=== PATIENT | female | born 1965 | race Caucasian/White ===

== ENCOUNTER 2020-06-30 10:05 | Emergency (ER) | payer OTHER ==
[~2020-06-30] VITALS: Ht 160 cm; Wt 122.5 kg
[2020-06-30] MEDS ORDERED: ELIQUIS5 MG (10:29)
[2020-06-30] MEDS ORDERED: DILT120 PO (10:39)
[2020-06-30] MEDS ORDERED: LOSA25 PO (10:40)
[2020-06-30] MEDS ORDERED: SERT25 PO (10:40)
[2020-06-30 10:48] LABS: Source, Urine Clean Catch
[2020-06-30 10:59] LABS: Appearance, Urine Clear (Clear); BASOPHILS ABSOLUTE AUTO 0.03 K/mm3 (0.00-0.23); BASOPHILS PERCENT AUTO 0 % (0-2); Bilirubin, Urine Neg (Neg); Blood, Urine 2+ (Neg); Color, Urine Yellow (P-Yellow); EOSINOPHILS ABSOLUTE AUTO 0.11 K/mm3 (0.00-0.68); EOSINOPHILS PERCENT AUTO 1 % (0-6); Glucose Qualitative, Urine Neg (Neg); Hematocrit 39.3 % (33.0-51.0); Hemoglobin 11.7 g/dL (11.5-16.0); IMMATURE GRAN ABSOLUTE AUTO 0.03 K/mm3 (0.00-0.10); IMMATURE GRAN PERCENT AUTO 0 % (0-1); Ketones, Urine Neg (Neg); LYMPHOCYTES ABSOLUTE AUTO 1.68 K/mm3 (0.84-5.20); LYMPHOCYTES PERCENT AUTO 21 % (21-46); Leukocyte Esterase, Urine 3+ (Neg); MONOCYTES ABSOLUTE AUTO 0.67 K/mm3 (0.16-1.47); MONOCYTES PERCENT AUTO 8 % (4-13); Mean Corpuscular HGB 23.4 pg (26.0-34.0); Mean Corpuscular HGB Conc 29.8 g/dL (31.5-36.5); Mean Corpuscular Volume 79 fL (80-100); Mean Platelet Volume 10.5 fL (9.1-12.4); NEUTROPHILS ABSOLUTE AUTO 5.54 K/mm3 (1.96-9.15); NEUTROPHILS PERCENT AUTO 69 % (41-73); Nitrite, Urine Neg (Neg); Platelet Count 306 K/mm3 (150-400); Protein, Urine Neg (Neg); RDW Coefficient Variation 17.1 % (11.7-14.2); RDW Standard Deviation 48.3 fL (35.1-46.3); Urobilinogen, Urine NORM (Normal); White Blood Cell Count 8.06 K/mm3 (4.00-11.30)
[2020-06-30 11:06] LABS: Bacteria Mod /hpf; Mucus Light (0-Heavy); Squamous Epithelial Cells Few /hpf (Few)
[2020-06-30 11:13] LABS: Alanine Aminotransfer (ALT/SGP 22 U/L (12-78); Albumin, Blood 3.5 g/dL (3.4-5.0); Albumin/Globulin Ratio 0.8 (0.8-1.8); Alk Phos 99 U/L (50-136); Anion Gap 4 mmol/L (6-16); Aspartate Aminotrans (AST/SGOT 12 U/L (12-37); Bilirubin, Total 0.5 mg/dL (0.1-1.0); Blood Urea Nitrogen 11 mg/dL (8-24); Bun/Creatinine Ratio 18.1 (12.0-20.0); CO2, Blood 27 mmol/L (21-32); Calcium, Blood 8.5 mg/dL (8.5-10.1); Chloride, Blood 110 mmol/L (98-108); Creatinine, Blood 0.61 mg/dL (0.40-1.00); Globulin, Blood 4.6 g/dL (2.2-4.0); Glomerular Filtration Rate >60 (60-); Glucose, Blood 87 mg/dL (70-99); Potassium, Blood 4.1 mmol/L (3.5-5.5); Sodium, Blood 141 mmol/L (136-145); Total Protein, Blood 8.1 g/dL (6.4-8.2)
[2020-06-30] MEDS ORDERED: Macrobid 100 M100 MG PO (11:45)
== END 2020-06-30 11:54 | disposition home or self-care (01) ==
LOC: ER 10:05
PROVIDERS: Physician Assistant
DX: K29.00 Acute gastritis without bleeding (principal); K21.9 Gastro-esophageal reflux disease without esophagitis; N39.0 Urinary tract infection, site not specified; Z79.01 Long term (current) use of anticoagulants; Z79.899 Other long term (current) drug therapy
CPT/HCPCS: 36415; 76705; 80053; 81001; 83690; 85025; 87086; 99284-25; A9270

== ENCOUNTER → 2020-12-09 | Outpatient (CLI) | payer OTHER ==
[~2020-12-09] MED LIST: DILT120 PO; ELIQUIS5 MG; LOSA25 PO; Macrobid 100 M100 MG PO; SERT25 PO
== END | disposition home or self-care (01) ==
LOC: LAB SHORT 11:45 → LAB 11:45
DX: J02.9 Acute pharyngitis, unspecified (principal)
CPT/HCPCS: 87081

== ENCOUNTER 2021-01-11 09:08 | Emergency (ER) | payer BC, OTHER ==
[~2021-01-11] VITALS: Ht 160 cm; Wt 126.5 kg
[2021-01-11] MEDS ORDERED: LOSA25 (09:31)
[2021-01-11] MEDS ORDERED: RANI150EL PO (09:31)
[2021-01-11] MEDS ORDERED: BENZ100A PO (10:09)
[2021-01-11] MEDS ORDERED: ONDA4ODT MM (10:09)
== END 2021-01-11 20:26 | disposition home or self-care (01) ==
LOC: ER 09:08
DX: U07.1 COVID-19 (principal); I48.91 Unspecified atrial fibrillation; G47.30 Sleep apnea, unspecified; Z91.048 Other nonmedicinal substance allergy status; Z79.899 Other long term (current) drug therapy; Z79.01 Long term (current) use of anticoagulants
CPT/HCPCS: 99283

== ENCOUNTER → 2021-03-05 | Outpatient (CLI) | payer BC, OTHER ==
[~2021-03-05] MED LIST changes: +BENZ100A PO; +LOSA25; +ONDA4ODT MM; +RANI150EL PO
== END | disposition home or self-care (01) ==
LOC: LAB SHORT 17:21
DX: Z09 Encounter for follow-up examination after completed treatment for conditions other than malignant neoplasm (principal); Z86.16 Personal history of COVID-19
CPT/HCPCS: 85379

== ENCOUNTER 2021-05-10 10:47 | Emergency (ER) | payer BC, OTHER ==
[~2021-05-10] VITALS: Ht 160 cm; Wt 135.2 kg
== END 2021-05-10 11:50 | disposition home or self-care (01) ==
LOC: ER 10:47
DX: U07.1 COVID-19 (principal); I50.9 Heart failure, unspecified; I48.91 Unspecified atrial fibrillation; Z79.899 Other long term (current) drug therapy
CPT/HCPCS: 99282

== ENCOUNTER 2022-06-04 22:33 | Inpatient (IN) | payer BC, OTHER ==
[~2022-06-04] VITALS: Ht 160 cm; Wt 135.0 kg
[2022-06-04 23:25] LABS: BASOPHILS ABSOLUTE AUTO 0.06 K/mm3 (0.00-0.23); BASOPHILS PERCENT AUTO 1 % (0-2); EOSINOPHILS ABSOLUTE AUTO 0.14 K/mm3 (0.00-0.68); EOSINOPHILS PERCENT AUTO 1 % (0-6); Hematocrit 43.8 % (33.0-51.0); Hemoglobin 13.6 g/dL (11.5-16.0); IMMATURE GRAN ABSOLUTE AUTO 0.09 K/mm3 (0.00-0.10); IMMATURE GRAN PERCENT AUTO 1 % (0-1); LYMPHOCYTES ABSOLUTE AUTO 2.95 K/mm3 (0.84-5.20); LYMPHOCYTES PERCENT AUTO 28 % (21-46); MONOCYTES ABSOLUTE AUTO 0.72 K/mm3 (0.16-1.47); MONOCYTES PERCENT AUTO 7 % (4-13); Mean Corpuscular HGB 24.8 pg (26.0-34.0); Mean Corpuscular HGB Conc 31.1 g/dL (31.5-36.5); Mean Corpuscular Volume 80 fL (80-100); Mean Platelet Volume 10.4 fL (9.1-12.4); NEUTROPHILS PERCENT AUTO 62 % (41-73); Platelet Count 421 K/mm3 (150-400); RDW Coefficient Variation 16.9 % (11.7-14.2); RDW Standard Deviation 49.1 fL (35.1-46.3); Red Blood Cell Count 5.49 M/mm3 (3.80-5.20); White Blood Cell Count 10.46 K/mm3 (4.00-11.30)
[2022-06-04 23:48] LABS: Influenza A, PCR NEGATIVE (NEGATIVE); Influenza B, PCR NEGATIVE (NEGATIVE); Resp Syncytial Virus, PCR NEGATIVE (NEGATIVE); SARS-Cov-2 (COVID-19) PCR, MMC NEGATIVE (NEGATIVE)
[2022-06-05 00:07] LABS: Albumin, Blood 3.2 g/dL (3.4-5.0); Albumin/Globulin Ratio 0.7 (0.8-1.8); Bilirubin, Total 0.4 mg/dL (0.1-1.0); Bun/Creatinine Ratio 16.2 (12.0-20.0); Creatinine, Blood 1.05 mg/dL (0.40-1.00); Globulin, Blood 4.8 g/dL (2.2-4.0); Potassium, Blood 3.6 mmol/L (3.5-5.5)
--- NOTE | 2022-06-05 06:33 | NUR ---
SHIFT SUMMARY PT RECEIVING DILTIAZEM 5MG/HR. SHE IS AFIB ON MONITOR WITH RATE 90S-120S. BP STABLE WITH SBP 110S-140S. PT DENIES CP. SHE IS A&OX4 AND INDEPENDENT WITH ADLS. LUNGS ARE CLEAR, DIMINISHED IN BASES. OCCASIONAL PRODUCTIVE COUGH THAT PT HAS HAD FOR APPROX 8DAYS. BOWEL TONES ACTIVE, ABDOMEN SOFT. PT HAD 1 UNMEASURED VOID THIS SHIFT. PT REQUESTED TO SLEEP IN CHAIR, RECLINER PROVIDED. CALL LIGHT WITHIN REACH AND LIGHTS DIMMED.
[2022-06-05] MEDS ORDERED: ELIQUIS5 M2 PO (06:40)
[2022-06-05] MEDS ORDERED: DESV50 PO (06:40)
[2022-06-05 07:29] LABS: BASOPHILS ABSOLUTE AUTO 0.05 K/mm3 (0.00-0.23); BASOPHILS PERCENT AUTO 1 % (0-2); EOSINOPHILS ABSOLUTE AUTO 0.11 K/mm3 (0.00-0.68); EOSINOPHILS PERCENT AUTO 1 % (0-6); Hematocrit 41.8 % (33.0-51.0); Hemoglobin 12.7 g/dL (11.5-16.0); IMMATURE GRAN ABSOLUTE AUTO 0.09 K/mm3 (0.00-0.10); IMMATURE GRAN PERCENT AUTO 1 % (0-1); LYMPHOCYTES ABSOLUTE AUTO 2.38 K/mm3 (0.84-5.20); LYMPHOCYTES PERCENT AUTO 26 % (21-46); MONOCYTES ABSOLUTE AUTO 0.82 K/mm3 (0.16-1.47); MONOCYTES PERCENT AUTO 9 % (4-13); Mean Corpuscular HGB 24.3 pg (26.0-34.0); Mean Corpuscular HGB Conc 30.4 g/dL (31.5-36.5); Mean Corpuscular Volume 80 fL (80-100); NEUTROPHILS ABSOLUTE AUTO 5.68 K/mm3 (1.96-9.15); NEUTROPHILS PERCENT AUTO 62 % (41-73); Platelet Count 423 K/mm3 (150-400); RDW Coefficient Variation 17.2 % (11.7-14.2); RDW Standard Deviation 49.4 fL (35.1-46.3); Red Blood Cell Count 5.22 M/mm3 (3.80-5.20); White Blood Cell Count 9.13 K/mm3 (4.00-11.30)
[2022-06-05 07:42] LABS: Bun/Creatinine Ratio 21.8 (12.0-20.0); Calcium, Blood 8.9 mg/dL (8.5-10.1); Creatinine, Blood 0.82 mg/dL (0.40-1.00); Potassium, Blood 3.8 mmol/L (3.5-5.5)
--- NOTE | 2022-06-05 10:25 | NUR ---
Pt. is awake and sitting in a chair whenshe welcomes my visit. Pt. is pleasant and displays evidence of being engaged and aware of her treatment and prognosis. Pt. is a woman of donald, and welcomes spritual care. Pt. verbalizes a recent loss of her sister. Through theraputic listening and pastoral care rapport is established and Pt. displays evidence of grief. Pastoral associate counsel is given and Pt. displays evidence of encouragment. Prayed with Pt. Pt. verbalized gratitude for the spiritual care visit and welcomed this calker to visit again.
--- NOTE | 2022-06-05 16:52 | NUR ---
Echocardiogram completed.
--- NOTE | 2022-06-05 18:38 | NUR ---
SUMMARY Pt is a medical floor status w/o telemetry patient. Independent in room. Tolerating activity well. HR is currently 95-105, atrial fibrillation. BP stable. Pt on room air. SpO2 90% or greater.
--- NOTE | 2022-06-05 22:13 | NUR ---
ASSUMED CARE ASSUMED CARE AT 1900. PT A/O X 4. SITTING IN A CHAIR. IND IN ROOM. DENIES CHEST PAIN. C/O SOB W/ EXERTION AND WHEN LAYING FLAT. PRODUCTIVE COUGH. AFIB RATE 90-110. SBP 130'S. VSS. ON RA. SEE SHIFT ASSESSMENT FOR FULL ASSESSMENT. CALL LIGHT IN REACH.
--- NOTE | 2022-06-06 04:54 | NUR ---
TRANSFFERED TO 309. PT TRANSFERRED VIA W/C TO 309 W/ PCT. PT CALM, W/ NO S/S OF DISTRESS NOTED. REPORT GIVEN TO MED NURSE. CHART, MEDS, AND BELONGINGS SENT WITH PT.
--- NOTE | 2022-06-06 05:37 | NUR ---
PATIENT ICU 06 TRANSFER. AXOX 4 AND ARRIVED VIA W/C. ON ROOM AIR. DENIES CHEST PAIN, SOB, AND N/V. PIV INTACT. VSS/AFEBRILE. REQUEST RECLINER TO SLEEP IN AND ONE PROVIDED. WATCHING TV AT THIS TIME. ARVIN.
--- NOTE | 2022-06-06 06:00 | NUR ---
TELEMETRY PLACED AND TECH REPORTS A-FIB 93.
[2022-06-06 06:41] LABS: Albumin/Globulin Ratio 0.7 (0.8-1.8); Bilirubin, Total 0.7 mg/dL (0.1-1.0); Bun/Creatinine Ratio 23.3 (12.0-20.0); Calcium, Blood 8.6 mg/dL (8.5-10.1); Creatinine, Blood 0.82 mg/dL (0.40-1.00); Globulin, Blood 4.3 g/dL (2.2-4.0); Magnesium, Blood 2.5 mg/dL (1.6-2.4); Phosphorus, Blood 4.5 mg/dL (2.5-4.9); Potassium, Blood 3.9 mmol/L (3.5-5.5); Total Protein, Blood 7.3 g/dL (6.4-8.2)
[2022-06-06 07:02] LABS: BASOPHILS ABSOLUTE AUTO 0.03 K/mm3 (0.00-0.23); BASOPHILS PERCENT AUTO 0 % (0-2); EOSINOPHILS ABSOLUTE AUTO 0.16 K/mm3 (0.00-0.68); EOSINOPHILS PERCENT AUTO 2 % (0-6); Hematocrit 38.3 % (33.0-51.0); Hemoglobin 11.9 g/dL (11.5-16.0); IMMATURE GRAN ABSOLUTE AUTO 0.06 K/mm3 (0.00-0.10); IMMATURE GRAN PERCENT AUTO 1 % (0-1); LYMPHOCYTES ABSOLUTE AUTO 1.99 K/mm3 (0.84-5.20); LYMPHOCYTES PERCENT AUTO 25 % (21-46); MONOCYTES ABSOLUTE AUTO 0.68 K/mm3 (0.16-1.47); MONOCYTES PERCENT AUTO 8 % (4-13); Mean Corpuscular HGB 24.4 pg (26.0-34.0); Mean Corpuscular HGB Conc 31.1 g/dL (31.5-36.5); Mean Corpuscular Volume 79 fL (80-100); Mean Platelet Volume 10.8 fL (9.1-12.4); NEUTROPHILS ABSOLUTE AUTO 5.13 K/mm3 (1.96-9.15); NEUTROPHILS PERCENT AUTO 64 % (41-73); Platelet Count 322 K/mm3 (150-400); RDW Coefficient Variation 17.2 % (11.7-14.2); RDW Standard Deviation 48.1 fL (35.1-46.3); Red Blood Cell Count 4.88 M/mm3 (3.80-5.20); White Blood Cell Count 8.05 K/mm3 (4.00-11.30)
--- NOTE | 2022-06-06 11:47 | NUR ---
Pt. is awake sitting up in a recliner and welcomes my visit. Pt. is pleasant and verbalizes an expectation that she will be kept overnight one more night before being discharged. Re-establish rapport. Pt. displays evidence of and optimistic confidence. Prayed with Pt. Pt. verbalized gratitude for the spiritual care visit. [facility]
--- NOTE | 2022-06-06 16:21 | NUR ---
SHIFT SUMMARY PATIENT IS ALERT AND ORIENTED. PATIENT HAS HAD NO ACUTE EVENTS THIS SHIFT. VITAL SIGNS REVIEWED. PATIENT HAS BEEN IND IN ROOM WITH NO INCIDENTS. PATIENT HAS HAD NO COMPLAINTS OF PAIN, NAUSEA, SOB OR VOMITTING THIS SHIFT. BED IN LOCKED AND LOWEST POSITION. CALL LIGHT IN PLACE. WILL POSSIBLY BE A DISCHARGE TOMORROW.
--- NOTE | 2022-06-07 04:06 | NUR ---
SHIFT SUMMARY PATIENT HAD NO ACUTE CHANGES. AXOX 4 AND INDEPENDENT IN ROOM. PIV REMAINS INTACT. IV ABX INFUSED. RT IN FOR BREATHING TX. DENIES PAIN AND N/V. VSS/AFEBRILE. ON TELEMETRY AFIB 107. SIT/SLEEP IN RECLINER T/O SHIFT. COOPERATIVE WITH CARE. CALL LIGHT IN REACH. BED IN LOWEST POSITION. WILL CONTINUE TO MONITOR UNTIL DAY SHIFTNURSE ASSUMES CARE.
[2022-06-07 05:50] LABS: BASOPHILS ABSOLUTE AUTO 0.01 K/mm3 (0.00-0.23); BASOPHILS PERCENT AUTO 0 % (0-2); EOSINOPHILS PERCENT AUTO 0 % (0-6); Hematocrit 39.5 % (33.0-51.0); Hemoglobin 11.9 g/dL (11.5-16.0); IMMATURE GRAN ABSOLUTE AUTO 0.12 K/mm3 (0.00-0.10); IMMATURE GRAN PERCENT AUTO 1 % (0-1); LYMPHOCYTES ABSOLUTE AUTO 1.08 K/mm3 (0.84-5.20); LYMPHOCYTES PERCENT AUTO 10 % (21-46); MONOCYTES ABSOLUTE AUTO 0.29 K/mm3 (0.16-1.47); MONOCYTES PERCENT AUTO 3 % (4-13); Mean Corpuscular HGB 24.3 pg (26.0-34.0); Mean Corpuscular HGB Conc 30.1 g/dL (31.5-36.5); Mean Corpuscular Volume 81 fL (80-100); Mean Platelet Volume 11.2 fL (9.1-12.4); NEUTROPHILS ABSOLUTE AUTO 9.86 K/mm3 (1.96-9.15); NEUTROPHILS PERCENT AUTO 87 % (41-73); Platelet Count 341 K/mm3 (150-400); RDW Coefficient Variation 16.9 % (11.7-14.2); RDW Standard Deviation 49.2 fL (35.1-46.3); White Blood Cell Count 11.36 K/mm3 (4.00-11.30)
[2022-06-07 06:13] LABS: Albumin/Globulin Ratio 0.7 (0.8-1.8); Bilirubin, Total 0.3 mg/dL (0.1-1.0); Bun/Creatinine Ratio 31.7 (12.0-20.0); Creatinine, Blood 0.6 mg/dL (0.40-1.00); Globulin, Blood 4.3 g/dL (2.2-4.0); Potassium, Blood 4.5 mmol/L (3.5-5.5); Total Protein, Blood 7.3 g/dL (6.4-8.2)
[2022-06-07] MEDS ORDERED: AIRDUO DIGIHAL1 EAC2 (13:57)
[2022-06-07] MEDS ORDERED: GUAI600T33 PO (13:58)
[2022-06-07] MEDS ORDERED: METO25ER PO (13:59)
[2022-06-07] MEDS ORDERED: LEVOFLOXACIN PO (14:00)
[2022-06-07] MEDS ORDERED: PREDNISONE5 M1 PO (14:02)
--- NOTE | 2022-06-07 15:11 | NUR ---
LATE ENTRY/DC HOME 1425: WRITTEN & VERBAL DC INSTRUCTIONS GIVEN TO PT WITH GOOD UNDERSTANDING VERBALIZED. ALL CONCERNS & QUESTIONS ANSWERED. NEW SCRIPTS WERE FAXED TO [facility] PER PT REQUEST. PIV DC'D WITH CATH TIP INTACT, NO REDNESS OR SWELLING NOTED. PT TO PRIVATE VEHICLE VIA W/C WITH ALL PERSONAL BELONGINGS.
== END 2022-06-07 15:00 | disposition home or self-care (01) | DRG 308 ==
LOC: ER 22:33 → ICUE 22:42 → ICUW 22:42 → ICUE 06-05 03:40 → MEDS 06-05 11:57 → ICUE 06-05 11:58 → MEDS 06-06 05:23
PROVIDERS: Emergency Medicine; Hospitalist; Student in an Organized Health Care Education/Training Program; ADMIT Internal Medicine
DX: I48.0 Paroxysmal atrial fibrillation (principal); J18.9 Pneumonia, unspecified organism; R74.8 Abnormal levels of other serum enzymes; I10 Essential (primary) hypertension; G47.33 Obstructive sleep apnea (adult) (pediatric); K21.9 Gastro-esophageal reflux disease without esophagitis; R60.0 Localized edema; J20.9 Acute bronchitis, unspecified; Z20.822 Contact with and (suspected) exposure to COVID-19; Z23 Encounter for immunization; Z90.49 Acquired absence of other specified parts of digestive tract; Z79.01 Long term (current) use of anticoagulants; Z91.041 Radiographic dye allergy status; Z79.899 Other long term (current) drug therapy
CPT/HCPCS: 0241U; 36415; 71046; 80048; 80053; 83735; 83880; 84100; 84145; 84443; 84484; 85025; 87070; 87205; 90686; 93005; 93010; 93306; 94640; 94664; 94760; 96365; 96366; 96368; 99284-25; A9270; G0378; J1956; J2920

== ENCOUNTER → 2024-05-03 | Outpatient (CLI) | payer BC, OTHER ==
[~2024-05-03] MED LIST changes: +AIRDUO DIGIHAL1 EAC2; +DESV50 PO; +ELIQUIS5 M2 PO; +GUAI600T33 PO; +LEVOFLOXACIN PO; +METO25ER PO; +PREDNISONE5 M1 PO
[2024-05-03 09:11] LABS: BASOPHILS ABSOLUTE AUTO 0.04 K/mm3 (0.00-0.23); BASOPHILS PERCENT AUTO 0 % (0-2); EOSINOPHILS ABSOLUTE AUTO 0.09 K/mm3 (0.00-0.68); EOSINOPHILS PERCENT AUTO 1 % (0-6); Hematocrit 43.4 % (33.0-51.0); Hemoglobin 13.1 g/dL (11.5-16.0); IMMATURE GRAN ABSOLUTE AUTO 0.05 K/mm3 (0.00-0.10); IMMATURE GRAN PERCENT AUTO 1 % (0-1); LYMPHOCYTES ABSOLUTE AUTO 1.85 K/mm3 (0.84-5.20); LYMPHOCYTES PERCENT AUTO 20 % (21-46); MONOCYTES ABSOLUTE AUTO 0.72 K/mm3 (0.16-1.47); MONOCYTES PERCENT AUTO 8 % (4-13); Mean Corpuscular HGB Conc 30.2 g/dL (31.5-36.5); Mean Corpuscular Volume 86 fL (80-100); Mean Platelet Volume 10.3 fL (9.1-12.4); NEUTROPHILS PERCENT AUTO 71 % (41-73); Platelet Count 297 K/mm3 (150-400); RDW Coefficient Variation 15.6 % (11.7-14.2); RDW Standard Deviation 48.4 fL (35.1-46.3); Red Blood Cell Count 5.04 M/mm3 (3.80-5.20); White Blood Cell Count 9.45 K/mm3 (4.00-11.30)
[2024-05-03 09:23] LABS: Albumin, Blood 3.4 g/dL (3.4-5.0); Albumin/Globulin Ratio 0.8 (0.8-1.8); Bilirubin, Total 0.8 mg/dL (0.1-1.0); Bun/Creatinine Ratio 22.2 (12.0-20.0); Creatinine, Blood 0.9 mg/dL (0.40-1.00); Globulin, Blood 4.5 g/dL (2.2-4.0); Potassium, Blood 4.7 mmol/L (3.5-5.5); Total Protein, Blood 7.9 g/dL (6.4-8.2)
== END ==
LOC: LAB SHORT 09:07 → LAB 09:07
PROVIDERS: Physician Assistant
DX: I51.7 Cardiomegaly (principal)
CPT/HCPCS: 80053; 83880; 85025